=== PATIENT | male | born 1935 ===

== ENCOUNTER 2018-07-28 09:19 | Inpatient (IN) | payer MEDICARE, MEDICAID ==
[2018-07-28] MEDS ORDERED: Albuterol-Ipratrop 3 mg / 0.5 (3 ml) UD INH STA ×2 (09:53→13:07)
--- NOTE | 2018-07-28 10:03 | ED PDOC ---
HPI: General Adult Time Seen by Provider: 07/28/18 09:36 Chief Complaint (Nursing): Respiratory Distress Chief Complaint (Provider): Respiratory Distress History Per: Patient, Family History/Exam Limitations: no limitations Onset/Duration Of Symptoms: Days, Persistent Current Symptoms Are (Timing): Still Present Additional Complaint(s): 82 year old male with no past medical history who is presenting to the ED for evaluation of chronic dry cough for years that worsened over the last 2 weeks. Patient states that he was given antibiotics a month ago with no relief in symptoms. He denies any chest pain or fevers. Patient offers no other medical complaints at this time. Department Specialist: Dr. Chen Past Medical History Reviewed: Historical Data, Nursing Documentation, Vital Signs Vital Signs: Last Vital Signs Temp 98 F 07/28/18 09:36 Pulse 61 07/28/18 09:36 Resp 18 07/28/18 09:36 BP 154/72 H 07/28/18 09:36 Pulse Ox 98 07/28/18 09:36 - Medical History PMH: No Chronic Diseases - Surgical History Surgical History: No Surg Hx - Family History Family History: States: Unknown Family Hx - Social History Current smoker - smoking cessation education provided: No Alcohol: None Drugs: Denies - Home Medications Home Medications: Ambulatory Orders Medication Instructions Recorded Albuterol/Ipratropium [Duoneb 3 3 ml IH Q6 PRN 07/28/18 mg/0.5 mg (3 ml) UD] Brinzolamide/Brimonidine Tart 1 drop RIGHTEYE Q12 07/28/18 [Simbrinza 1%-0.2% Eye Drops] Carvedilol [Coreg] 12.5 mg PO Q12 07/28/18 Dorzolamide 2% [Trusopt] 1 drop RIGHTEYE Q12 07/28/18 Doxazosin [Cardura] 2 mg PO DAILY 07/28/18 Famotidine [Pepcid] 20 mg PO DAILY 07/28/18 Isosorbide Mononitrate [Imdur] 60 mg PO DAILY 07/28/18 Linaclotide [Linzess] 290 mcg PO DAILY 07/28/18 Meloxicam [Mobic] 15 mg PO DAILY 07/28/18 Montelukast [Singulair] 10 mg PO DAILY 01/23/19 Tamsulosin [Flomax] 0.4 mg PO DAILY 07/28/18 Timolol 0.5% Ophth [Timoptic 0.5% 1 drop RIGHTEYE Q12 07/28/18 Ophth Soln] Umeclidinium Brm/Vilanterol Tr 1 puff IH DAILY 07/28/18 [Anoro Ellipta 62.5-25 Mcg INH] - Allergies Allergies/Adverse Reactions: Allergies Allergy/AdvReac Type Severity Reaction Status Date / Time No Known Allergies Allergy Verified 07/28/18 09:55 Review of Systems ROS Statement: Except As Marked, All Systems Reviewed And Found Negative Constitutional: Negative for: Fever Cardiovascular: Negative for: Chest Pain Respiratory: Positive for: Cough Physical Exam - Reviewed Nursing Documentation Reviewed: Yes Vital Signs Reviewed: Yes - Physical Exam Appears: Positive for: Non-toxic, No Acute Distress Head Exam: Positive for: ATRAUMATIC, NORMAL INSPECTION, NORMOCEPHALIC Skin: Positive for: Normal Color, Warm, DRY Eye Exam: Positive for: EOMI, Normal appearance, PERRL ENT: Positive for: Normal ENT Inspection Neck: Positive for: Normal, Painless ROM Cardiovascular/Chest: Positive for: Regular Rate, Rhythm. Negative for: Murmur Respiratory: Positive for: Wheezing (bilateral ). Negative for: Respiratory Distress Gastrointestinal/Abdominal: Positive for: Normal Exam, Soft. Negative for: Tenderness Extremity: Positive for: Normal ROM. Negative for: Deformity, Swelling Neurologic/Psych: Positive for: Alert, Oriented. Negative for: Motor/Sensory Deficits - Laboratory Results Result Diagrams: 07/31/18 04:30 07/31/18 04:30 - ECG O2 Sat by Pulse Oximetry: 98 (RA) Pulse Ox Interpretation: Normal Medical Decision Making Medical Decision Making: Time: 9:53 Plan: --EKG --CMP --CBC --Coags --Chest X-Ray --Duoneb 3 ml INH --Solu-Medrol 125 mg IVP --Blood Culture --Peak Flow Pre/Post Tx --Influenza A B Accession No. 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 FINDINGS: LUNGS: No active pulmonary disease. PLEURA: No significant pleural effusion identified, no pneumothorax apparent. CARDIOVASCULAR: Aortic atherosclerotic calcifications. Cardiomediastinal silhouette enlarged. OSSEOUS STRUCTURES: Final degenerative changes. VISUALIZED UPPER ABDOMEN: Normal. OTHER FINDINGS: None. IMPRESSION: No active disease. Scribe Attestation: Documented by She Means, acting as a scribe for Olivia Gross MD. Provider Scribe Attestation: All medical record entries made by the Scribe were at my direction and personally dictated by me. I have reviewed the chart and agree that the record accurately reflects my personal performance of the history, physical exam, medical decision making, and the department course for this patient. I have also personally directed, reviewed, and agree with the discharge instructions and disposition. Disposition - Clinical Impression Clinical Impression: COPD exacerbation - Patient ED Disposition Is Patient to be Admitted: Yes - Disposition Disposition Time: 13:07 Condition: STABLE - Pt Status Changed To: Hospital Disposition Of: Inpatient - Admit Certification Admit to Inpatient:: After my assessment, the patient will require hospitalization for at least two midnights. This is because of the severity of symptoms shown, intensity of services needed, and/or the medical risk in this patient being treated as an outpatient. - POA Present On Arrival: None
[2018-07-28 10:12] LABS: BASO % 0.6 % (0.0-2.0); EOS # 1.4 K/uL (0.0-0.7); EOS % 16.6 % (0.0-4.0); HEMOGLOBIN 12.4 g/dL (12.0-18.0); LYMPH # 1.3 K/uL (1.0-4.3); LYMPH % 15.5 % (20.0-40.0); MEAN CORPUSCULAR HEMOGLOBIN 29.3 pg (27.0-31.0); MEAN CORPUSCULAR HGB CONC 32.6 g/dL (33.0-37.0); MEAN PLATELET VOLUME 10.3 fl (7.2-11.7); MONO % 12.2 % (0.0-10.0); NEUT # 4.5 K/uL (1.8-7.0); NEUT % 55.1 % (50.0-75.0); NRBC % 0.1 % (0.0-0.0); RBC 4.25 Mil/uL (4.40-5.90); RED CELL DISTRIBUTION WIDTH 14.3 % (11.5-14.5); WHITE BLOOD COUNT 8.2 K/uL (4.8-10.8)
[2018-07-28] MEDS ORDERED: Albuterol-Ipratrop 3 mg / 0.5 (3 ml) UD ONE ×2 (10:13→13:51)
[2018-07-28 10:25] LABS: ALBUMIN 3.9 g/dL (3.5-5.0); ALT/SGPT 21 U/L (21-72); AST/SGOT 23 U/L (17-59); BLOOD UREA NITROGEN 14 mg/dl (9-20); CALCIUM 9.2 mg/dL (8.4-10.2); GFR NON-AFRICAN AMERICAN > 60
[2018-07-28 10:31] LABS: INR 1.2; PROTHROMBIN TIME 13.1 Seconds (9.8-13.1)
--- NOTE | 2018-07-28 11:23 | RAD ---
Date of service: 07/28/2018 HISTORY: Cough COMPARISON: No prior. FINDINGS: LUNGS: No active pulmonary disease. PLEURA: No significant pleural effusion identified, no pneumothorax apparent. CARDIOVASCULAR: Aortic atherosclerotic calcifications. Cardiomediastinal silhouette enlarged. OSSEOUS STRUCTURES: Final degenerative changes. VISUALIZED UPPER ABDOMEN: Normal. OTHER FINDINGS: None. IMPRESSION: No active disease.
--- NOTE | 2018-07-28 12:09 | CARD ---
APPROVED REPORT Date of service: 07/28/2018 EKG Measurement Heart [id number] <Conclusion> Sinus rhythm with 1st degree AV block Nonspecific T wave abnormality Abnormal ECG
[2018-07-28] MEDS ORDERED: Azithromycin 500 MG in Sodium Chloride 0.9% 250 ML IV STA (13:06)
[2018-07-28] MEDS ORDERED: cefTRIAXone (Rocephin) 1 gm Inj ONE (13:50)
[2018-07-28] MEDS ORDERED: Azithromycin 500 MG IV IVPB ONE (15:52)
[2018-07-28 18:01] LABS: ABG ALLEN TEST YES; ARTERIAL BLOOD GAS HCO3 26.5 mmol/L (21-28); ARTERIAL BLOOD GAS HEMOGLOBIN 14.3 g/dL (11.7-17.4); ARTERIAL BLOOD GAS O2 CAPACITY 19.5 mL/dL (16-24); ARTERIAL BLOOD GAS O2 CONTENT 19.3 ML/dL (15-23); ARTERIAL BLOOD GAS O2 SAT 98.8 % (95-98); ARTERIAL BLOOD GAS PCO2 35 mm/Hg (35-45); ARTERIAL BLOOD GAS PH 7.47 (7.35-7.45); ARTERIAL BLOOD GAS PO2 84 mm/Hg (80-100); ARTERIAL BLOOD GAS TCO2 26.6 mmol/L (22-28)
[2018-07-28] MEDS: Albuterol-Ipratrop 3 mg / 0.5 (3 ml) UD INH SCH (19:25)
[2018-07-28] MEDS ORDERED: Influenza Vaccine 60 mcg/0.5 mL SYR (4YR UP) IM ONE (19:25)
[2018-07-28] MEDS: Dorzolamide 2% Ophth Soln OD SCH (21:30)
[2018-07-29] MEDS: Albuterol-Ipratrop 3 mg / 0.5 (3 ml) UD INH SCH ×4 (01:00→19:37)
[2018-07-29] MEDS: MethylPREDNISolone 40 mg Vial IVP SCH ×3 (02:25→17:44)
[2018-07-29 06:07] LABS: HEMOGLOBIN 13.4 g/dL (12.0-18.0); MEAN CELL VOLUME 88.1 fl (80.0-94.0); MEAN CORPUSCULAR HEMOGLOBIN 28.9 pg (27.0-31.0); MEAN CORPUSCULAR HGB CONC 32.8 g/dL (33.0-37.0); RBC 4.63 Mil/uL (4.40-5.90); RED CELL DISTRIBUTION WIDTH 14.4 % (11.5-14.5); WHITE BLOOD COUNT 13.2 K/uL (4.8-10.8)
[2018-07-29 06:24] LABS: BLOOD UREA NITROGEN 21 mg/dl (9-20); CALCIUM 9.3 mg/dL (8.4-10.2); GFR NON-AFRICAN AMERICAN > 60; HDL CHOLESTEROL 50 MG/DL (30-70)
[2018-07-29 06:28] LABS: LDL CHOLESTEROL 157 mg/dL (0-129)
[2018-07-29] MEDS ORDERED: Promethazine/Cod 6.25mg-10mg/5ml Syr UD PO PRN (06:51)
[2018-07-29] MEDS: Acetylcysteine 20% Inhal Soln (4ml) PO SCH (08:15)
[2018-07-29] MEDS: Naproxen 500 MG TAB PO SCH ×2 (09:20→17:43)
[2018-07-29] MEDS: Brimonidine 0.2% 50 DROP/5 ML BOTTLE OD SCH ×2 (09:27→20:58)
[2018-07-29] MEDS: Azithromycin 500 MG in Sodium Chloride 0.9% 250 ML IVPB SCH (09:29)
[2018-07-29] MEDS: Dorzolamide 2% Ophth Soln OD SCH ×2 (09:30→20:58)
--- NOTE | 2018-07-29 14:09 | CT ---
Date of service: 07/29/2018 PROCEDURE: CT Chest without contrast HISTORY: cough, sob, r/o pna COMPARISON: Frontal chest radiograph 07/28/2018. TECHNIQUE: Contiguous axial images were obtained through the chest without intravenous contrast enhancement. Sagittal and coronal reconstructions were performed. Radiation dose: Total exam DLP = 498.27 mGy-cm. This CT exam was performed using one or more of the following dose reduction techniques: Automated exposure control, adjustment of the mA and/or kV according to patient size, and/or use of iterative reconstruction technique. FINDINGS: LUNGS: There is very limited but diffuse increase in reticular markings in the periphery of the bilateral lungs with occasional associated emphysema in a pattern that is suspicious for interstitial pulmonary disease, likely primarily chronic and timeframe. Rare associated ground-glass opacity seen primarily the upper lobes bilaterally with interstitial changes could reflect an acute subacute component. While interstitial pneumonitis is certain possibility, this is not definite and clinical correlation is recommended. Central airways appear clear. No definitive neoplasm appreciable throughout. There are occasional noncalcified, subpleural nodules identified at the bilateral apices and mid lung zones which are nonspecific. MEDIASTINUM: The thoracic aorta is mildly dilated to 4.1 cm at the ascending arch resume a normal caliber of 3.1 cm at the proximal to mid arch. Borderline cardiomegaly. Multifocal coronary artery calcification identified. Main pulmonary artery unremarkable. No vascular congestion. No significant lymphadenopathy. Calcified lymph nodes or granulomata are seen at the left hilar region. There is a tiny hiatal hernia identified at the inferior mediastinum. Calcified atherosclerotic plaque seen related to the thoracic aorta in multiple segments. PLEURA: No pleural fluid. No pneumothorax. BONES: No fracture. No destructive lesion. UPPER ABDOMEN: Grossly unremarkable. OTHER FINDINGS: None. IMPRESSION: 1. Findings most compatible with a very mild but diffuse interstitial process predominately in the periphery of the lungs with occasional associated emphysema suggesting chronic time frame. Occasional tiny subpleural nodules or scarring are identified bilaterally at the upper lobes. Ground-glass opacities appreciated at the bilateral upper lobes occasion associated with peripheral interstitial pulmonary changes and could reflect an acute or subacute infectious or inflammatory process. No definite consolidation appreciated bilaterally. 2. No pleural or pericardial effusion or significant lymphadenopathy identified. 3. Dilated ascending thoracic aorta 4.1 cm with the thoracic aorta assuming normal caliber the proximal to mid arch level.
[2018-07-29] MEDS ORDERED: Acetylcysteine 10% 4 ML IH SCH (17:00)
[2018-07-29] MEDS: guaiFENesin-DM 600-30 mg ER Tab PO SCH (17:44)
[2018-07-29] MEDS: Promethazine/Cod 6.25mg-10mg/5ml Syr UD PO SCH ×2 (17:49→21:01)
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
[2018-07-30] MEDS: MethylPREDNISolone 40 mg Vial IVP SCH ×3 (00:12→16:40)
[2018-07-30] MEDS: Albuterol-Ipratrop 3 mg / 0.5 (3 ml) UD INH SCH ×4 (01:10→19:51)
[2018-07-30 05:38] LABS: BASO % 0.2 % (0.0-2.0); HEMOGLOBIN 13.3 g/dL (12.0-18.0); LYMPH # 1.4 K/uL (1.0-4.3); LYMPH % 7.6 % (20.0-40.0); MEAN CELL VOLUME 88.8 fl (80.0-94.0); MEAN CORPUSCULAR HEMOGLOBIN 28.6 pg (27.0-31.0); MEAN CORPUSCULAR HGB CONC 32.2 g/dL (33.0-37.0); MEAN PLATELET VOLUME 10.8 fl (7.2-11.7); MONO # 0.5 K/uL (0.0-0.8); MONO % 2.7 % (0.0-10.0); NEUT # 16.5 K/uL (1.8-7.0); NEUT % 89.5 % (50.0-75.0); PLATELET COUNT 182 K/uL (130-400); RBC 4.63 Mil/uL (4.40-5.90); RED CELL DISTRIBUTION WIDTH 14.7 % (11.5-14.5); WHITE BLOOD COUNT 18.5 K/uL (4.8-10.8)
[2018-07-30] MEDS: Promethazine/Cod 6.25mg-10mg/5ml Syr UD PO SCH ×4 (05:47→22:32)
[2018-07-30 06:22] LABS: ALBUMIN 4.1 g/dL (3.5-5.0); ALT/SGPT 19 U/L (21-72); AST/SGOT 27 U/L (17-59); BLOOD UREA NITROGEN 34 mg/dl (9-20); CALCIUM 9.5 mg/dL (8.4-10.2); GFR NON-AFRICAN AMERICAN 58
[2018-07-30] MEDS: guaiFENesin-DM 600-30 mg ER Tab PO SCH ×2 (08:18→16:40)
[2018-07-30] MEDS: Naproxen 500 MG TAB PO SCH ×2 (08:18→16:39)
[2018-07-30] MEDS: Dorzolamide 2% Ophth Soln OD SCH ×2 (08:20→22:32)
[2018-07-30] MEDS ORDERED: Sodium Chloride 3% for Inhalation 4 ML VIAL.NEB IH PRN (08:51)
[2018-07-30 08:52] LABS: LYMPHOCYTE 7 % (20-50); MONOCYTE 2 % (0-10); NEUTROPHIL 91 % (42-75); TOTAL CELLS COUNTED 100
[2018-07-30 08:53] LABS: ANISOCYTOSIS SLIGHT; HYPOCHROMIC SLIGHT; MICROCYTOSIS SLIGHT; OVALOCYTES SLIGHT; TEARDROP CELLS SLIGHT
[2018-07-30 08:54] LABS: LARGE PLATELETS PRESENT
[2018-07-30 08:56] LABS: PLATELET ESTIMATE NORMAL (NORMAL)
[2018-07-30] MEDS: Acetylcysteine 20% Inhal Soln (4ml) PO SCH ×3 (09:00→19:50)
[2018-07-30] MEDS: Azithromycin 500 MG in Sodium Chloride 0.9% 250 ML IVPB SCH (11:36)
[2018-07-30] MEDS: Brimonidine 0.2% 50 DROP/5 ML BOTTLE OD SCH ×2 (14:43→22:33)
--- NOTE | 2018-07-30 15:16 | CARD ---
APPROVED REPORT Date of service: 07/30/2018 EXAM: Two-dimensional and M-mode echocardiogram with Doppler and color Doppler. Other Information Quality : GoodRhythm : NSR INDICATION COPD 2D DIMENSIONS IVSd1.29 (0.7-1.1cm)LVDd5.41 (3.9-5.9cm) LVOT Diameter2.13 (1.8-2.4cm)PWd1.30 (0.7-1.1cm) IVSs1.71 (0.8-1.2cm)LVDs3.54 (2.5-4.0cm) FS (%) 34.5 %PWs1.52 (0.8-1.2cm) M-Mode DIMENSIONS Left Atrium (MM)5.10 (2.5-4.0cm)IVSd1.65 (0.7-1.1cm) Aortic Root3.64 (2.2-3.7cm)LVDd4.27 (4.0-5.6cm) Aortic Cusp Exc.0.69 (1.5-2.0cm)PWd1.32 (0.7-1.1cm) IVSs2.08 cmFS (%) 49 % LVDs2.18 (2.0-3.8cm)PWs1.62 cm Aortic Valve AoV Peak Gjuzdoof061.1cm/sAoV VTI62.4cmAO Peak GR.29mmHg LVOT Peak Cekfedfh44.7cm/sLVOT VTI16.32cmAO Mean GR.19mmHg ABRAM (VMAX)0.75ap1BWO (VTI)0.51cm2 Mitral Valve MV E Sfkiijvt39.4cm/sMV DECEL YTHX646tuGF A Awvtbmqk54.5cm/s MV VPM34doM/A ratio1.1MVA (PHT)3.36cm2 TDI Lateral E' Peak V7.17cm/sMedial E' Peak V5.54cm/sE/Lateral E'13.6 E/Medial E'17.6 LEFT VENTRICLE The left ventricle is normal size. There is mild concentric left ventricular hypertrophy. The left ventricular systolic function is normal. The estimated ejection fraction is 55-60% No regional wall motion abnormalities noted.. Transmitral Doppler flow pattern is Grade II-pseudonormal filling dynamics. No left ventricle thrombus noted on this study. There is no ventricular septal defect visualized. There is no left ventricular aneurysm. There is no mass noted in the left ventricle. RIGHT VENTRICLE The right ventricle is normal size. There is normal right ventricular wall thickness. The right ventricular systolic function is normal. ATRIA The left atrium is mildly dilated. The right atrium size is normal. The interatrial septum is intact with no evidence for an atrial septal defect. AORTIC VALVE The aortic valve is normal in structure. Mildly calcified leaflets. No aortic regurgitation is present. There is moderate to severe aortic valvular stenosis. Peak aortic velocity is - 3 m/sec and calculated AV area is < 1 cm2. Correlate clinically. There is no aortic valvular vegetation. MITRAL VALVE The mitral valve is normal in structure. There is no evidence of mitral valve prolapse. There is no mitral valve stenosis. There is mild mitral valve regurgitation noted. TRICUSPID VALVE The tricuspid valve is normal in structure. There is trace tricuspid valve regurgitation noted. There is no tricuspid valve prolapse or vegetation. There is no tricuspid valve stenosis. PULMONIC VALVE The pulmonary valve is normal in structure. There is no pulmonic valvular regurgitation. There is no pulmonic valvular stenosis. GREAT VESSELS The aortic root is normal in size. The ascending aorta is normal in size. The pulmonary artery is normal. The IVC is normal in size and collapses >50% with inspiration. PERICARDIAL EFFUSION There is no pericardial effusion. There is no pleural effusion. <Conclusion> The estimated ejection fraction is 55-60% Transmitral Doppler flow pattern is Grade II-pseudonormal filling dynamics. The left atrium is mildly dilated. There is moderate to severe aortic valvular stenosis. Peak aortic velocity is - 3 m/sec and calculated AV area is < 1 cm2. Correlate clinically. There is mild mitral valve regurgitation noted. There is trace tricuspid valve regurgitation noted.
--- NOTE | 2018-07-30 17:02 | CP.PCM.PN ---
Subjective - Date & Time of Evaluation Date of Evaluation: 07/30/18 Time of Evaluation: 12:50 - Subjective Subjective: F/U COPD Exacerbation. Dry cough improved, less chest congestion. Objective - Vital Signs/Intake and Output Vital Signs (last 24 hours): Temp Pulse Resp BP Pulse Ox 97.5 F L 64 20 120/52 L 95 07/30/18 16:17 07/30/18 16:17 07/30/18 16:17 07/30/18 16:17 07/30/18 16:17 - Medications Medications: Current Medications Albuterol/Ipratropium (Duoneb 3 Mg/0.5 Mg (3 Ml) Ud) 3 ml INH RQ6 [facility] Last Admin: 07/30/18 13:21 Dose: 3 ml Atorvastatin Calcium (Lipitor) 10 mg PO DAILY [facility] Last Admin: 07/30/18 08:19 Dose: 10 mg Brimonidine Tartrate (Alphagan 0.2% Opht) 1 drop OD Q12 [facility] Last Admin: 07/30/18 14:43 Dose: 1 drop Carvedilol (Coreg) 12.5 mg PO Q12 [facility] Last Admin: 07/30/18 08:18 Dose: 12.5 mg Docusate Sodium (Colace) 100 mg PO BID [facility] Last Admin: 07/30/18 16:52 Dose: 100 mg Dorzolamide HCl (Trusopt) 1 drop OD Q12 [facility] Last Admin: 07/30/18 08:20 Dose: 1 drop Doxazosin Mesylate (Cardura) 2 mg PO DAILY [facility] Last Admin: 07/30/18 08:19 Dose: 2 mg Famotidine (Pepcid) 20 mg PO DAILY [facility] Last Admin: 07/30/18 08:19 Dose: 20 mg Guaifenesin/Dextromethorphan (Mucinex-Dm 600-30 Mg) 1 tab PO BID [facility] Last Admin: 07/30/18 16:40 Dose: 1 tab Home Med (Linaclotide [Linzess]) 290 mcg PO DAILY [facility] Ceftriaxone Sodium 1 gm/ (Sodium Chloride) 100 mls @ 100 mls/hr IVPB DAILY [facility]; Protocol Last Admin: 07/30/18 11:35 Dose: 100 mls/hr Azithromycin 500 mg/ Sodium (Chloride) 250 mls @ 250 mls/hr IVPB DAILY [facility]; Protocol Last Admin: 07/30/18 11:36 Dose: 250 mls/hr Isosorbide Mononitrate (Imdur) 60 mg PO DAILY [facility] Last Admin: 07/30/18 08:19 Dose: 60 mg Lactulose (Enulose) 20 gm PO DAILY PRN PRN Reason: Constipation Methylprednisolone (Solu-Medrol) 40 mg IVP Q8 [facility] Last Admin: 07/30/18 16:40 Dose: 40 mg Montelukast Sodium (Singulair) 10 mg PO DAILY [facility] Last Admin: 07/30/18 08:19 Dose: 10 mg Naproxen (Naproxen) 500 mg PO BID [facility] Last Admin: 07/30/18 16:39 Dose: 500 mg Promethazine HCl/Codeine (Phenergan/Codeine Oral Syrup) 5 ml PO Q6 [facility] Last Admin: 07/30/18 16:42 Dose: 5 ml Tamsulosin HCl (Flomax) 0.4 mg PO DAILY [facility] Last Admin: 07/30/18 08:18 Dose: 0.4 mg Timolol Maleate (Timoptic 0.5% [facility]) 1 drop OD Q12 [facility] Last Admin: 07/30/18 08:20 Dose: 1 drop - Labs Labs: 07/30/18 04:30 07/30/18 04:30 PT 13.1 Seconds (9.8-13.1) 07/28/18 10:04 INR 1.2 07/28/18 10:04 APTT 31.0 Seconds (25.6-37.1) 07/28/18 10:04 - Constitutional Appears: No Acute Distress, Chronically Ill - Head Exam Head Exam: NORMAL INSPECTION - Eye Exam Eye Exam: PERRL (R eye, blind on left.) - ENT Exam ENT Exam: Normal Exam - Neck Exam Neck Exam: Normal Inspection - Respiratory Exam Respiratory Exam: Decreased Breath Sounds (at bases), Rhonchi (scattered ), Wheezes (few scattered) - Cardiovascular Exam Cardiovascular Exam: REGULAR RHYTHM - GI/Abdominal Exam GI & Abdominal Exam: Soft, Normal Bowel Sounds - Extremities Exam Additional comments: B/L TMA - Back Exam Back Exam: NORMAL INSPECTION - Neurological Exam Neurological Exam: Alert, Awake, Oriented x3 Additional comments: No focal motor/sensory deficit - Psychiatric Exam Psychiatric exam: Normal Affect, Normal Mood - Skin Skin Exam: Warm Assessment and Plan (1) PNA (pneumonia) Status: Acute (2) Chronic cough Status: Acute (3) COPD exacerbation Status: Acute (4) Hypercholesterolemia Status: Chronic (5) HTN (hypertension) Status: Chronic (6) History of transmetatarsal amputation of foot Status: Chronic (7) CAD (coronary artery disease) Status: Chronic (8) BPH (benign prostatic hyperplasia) Status: Chronic (9) Generalized pain Status: Chronic - Assessment and Plan (Free Text) Plan: CT Chest: COPD, PNA. Continue Zithromax, Ceftriaxone, Duoneb, Solumedrol and rest of Tx., abnormal EKG, f/u ECHO, Cardiac consult
--- NOTE | 2018-07-30 20:33 | CP.PCM.CON ---
<Larry Frias - Last Filed: 07/30/18 20:04> History of Present Illness - History of Present Illness History of Present Illness: Larry Frias DO PGY1 - Internal Medicine Acls Specialist - Cardiology Consult Note for Dr. Myles 82M w/ a PMH of COPD, CAD, HTN, OA, BL TMA presented to [facility] on 07/28 for persistent cough and SOB over many months worsening 2 weeks [employer]. No relief w/ home duoneb + anti tussive. Upon evaluation patient continues to complain of SOB w/ Cough; denies any chest pain, palpitation, orthopnea, LE edema. No further complaints voiced on 12 system ROS. PMH as above PSH: L eye surgery as a child,BL TMA Home Rx: Anoro-Ellipta 1puff QD, Mobic 15 Daily, Linzess 290mcg Daily, Cardura 2mg QD, Duoneb Q6H pRN, Montelukast 10 QD, IMDUR 60 Daily, Coreg 12.5 Q12, Social: Former heavy smoker Quit 12 years ago, Denies EtOH, Denies Illicit drug use FamHx: Denies Review of Systems - Review of Systems All systems: reviewed and no additional remarkable complaints except Review of Systems: as per HPI Past Patient History - Past Medical History & Family History Past Medical History?: Yes - Past Social History Smoking Status: Former Smoker Alcohol: None Drugs: Denies Home Situation {Lives}: Alone - CARDIAC Hx Cardiac Disorders: Yes Hx Hypercholesterolemia: Yes Hx Hypertension: Yes - PULMONARY Hx Respiratory Disorders: Yes Hx Chronic Obstructive Pulmonary Disease (COPD): Yes - NEUROLOGICAL Hx Neurological Disorder: No - HEENT Hx HEENT Problems: Yes Hx Blind: Yes (L eye) - RENAL Hx Chronic Kidney Disease: No - ENDOCRINE/METABOLIC Hx Endocrine Disorders: No - HEMATOLOGICAL/ONCOLOGICAL Hx Blood Disorders: No - INTEGUMENTARY Hx Dermatological Problems: No - MUSCULOSKELETAL/RHEUMATOLOGICAL Hx Musculoskeletal Disorders: Yes Hx Arthritis: Yes Hx Falls: No Hx Unsteady Gait: Yes - GASTROINTESTINAL Hx Gastrointestinal Disorders: Yes - GENITOURINARY/GYNECOLOGICAL Hx Genitourinary Disorders: Yes Hx Prostate Problems: Yes - PSYCHIATRIC Hx Psychophysiologic Disorder: No Hx Substance Use: No - SURGICAL HISTORY Hx Surgeries: Yes Other/Comment: b/l toes amputation - ANESTHESIA Hx Anesthesia: Yes Meds Allergies/Adverse Reactions: Allergies Allergy/AdvReac Type Severity Reaction Status Date / Time No Known Allergies Allergy Verified 07/28/18 09:55 - Medications Medications: Current Medications Albuterol/Ipratropium (Duoneb 3 Mg/0.5 Mg (3 Ml) Ud) 3 ml INH RQ6 [facility] Last Admin: 07/30/18 19:51 Dose: 3 ml Atorvastatin Calcium (Lipitor) 10 mg PO DAILY [facility] Last Admin: 07/30/18 08:19 Dose: 10 mg Brimonidine Tartrate (Alphagan 0.2% Opht) 1 drop OD Q12 [facility] Last Admin: 07/30/18 14:43 Dose: 1 drop Carvedilol (Coreg) 12.5 mg PO Q12 [facility] Last Admin: 07/30/18 08:18 Dose: 12.5 mg Docusate Sodium (Colace) 100 mg PO BID [facility] Last Admin: 07/30/18 16:52 Dose: 100 mg Dorzolamide HCl (Trusopt) 1 drop OD Q12 [facility] Last Admin: 07/30/18 08:20 Dose: 1 drop Doxazosin Mesylate (Cardura) 2 mg PO DAILY [facility] Last Admin: 07/30/18 08:19 Dose: 2 mg Famotidine (Pepcid) 20 mg PO DAILY [facility] Last Admin: 07/30/18 08:19 Dose: 20 mg Guaifenesin/Dextromethorphan (Mucinex-Dm 600-30 Mg) 1 tab PO BID [facility] Last Admin: 07/30/18 16:40 Dose: 1 tab Home Med (Linaclotide [Linzess]) 290 mcg PO DAILY [facility] Ceftriaxone Sodium 1 gm/ (Sodium Chloride) 100 mls @ 100 mls/hr IVPB DAILY [facility]; Protocol Last Admin: 07/30/18 11:35 Dose: 100 mls/hr Azithromycin 500 mg/ Sodium (Chloride) 250 mls @ 250 mls/hr IVPB DAILY [facility]; Protocol Last Admin: 07/30/18 11:36 Dose: 250 mls/hr Isosorbide Mononitrate (Imdur) 60 mg PO DAILY [facility] Last Admin: 07/30/18 08:19 Dose: 60 mg Lactulose (Enulose) 20 gm PO DAILY PRN PRN Reason: Constipation Methylprednisolone (Solu-Medrol) 40 mg IVP Q8 [facility] Last Admin: 07/30/18 16:40 Dose: 40 mg Montelukast Sodium (Singulair) 10 mg PO DAILY [facility] Last Admin: 07/30/18 08:19 Dose: 10 mg Naproxen (Naproxen) 500 mg PO BID [facility] Last Admin: 07/30/18 16:39 Dose: 500 mg Promethazine HCl/Codeine (Phenergan/Codeine Oral Syrup) 5 ml PO Q6 [facility] Last Admin: 07/30/18 16:42 Dose: 5 ml Tamsulosin HCl (Flomax) 0.4 mg PO DAILY [facility] Last Admin: 07/30/18 08:18 Dose: 0.4 mg Timolol Maleate (Timoptic 0.5% Ophth Soln) 1 drop OD Q12 [facility] Last Admin: 07/30/18 08:20 Dose: 1 drop Physical Exam - Constitutional Appears: Well, Non-toxic, No Acute Distress - Head Exam Head Exam: ATRAUMATIC, NORMOCEPHALIC - Eye Exam Eye Exam: EOMI, Normal appearance, PERRL. absent: Scleral icterus - ENT Exam ENT Exam: Mucous Membranes Moist - Respiratory Exam Respiratory Exam: Prolonged Expiratory Phase, Rhonchi, Wheezes - Cardiovascular Exam Cardiovascular Exam: RRR, +S1, +S2 - GI/Abdominal Exam GI & Abdominal Exam: Normal Bowel Sounds, Soft. absent: Tenderness - Extremities Exam Additional comments: Good tibial pulses; BL TMA - Neurological Exam Neurological exam: Alert - Psychiatric Exam Psychiatric exam: Normal Affect, Normal Mood - Skin Skin Exam: Dry, Intact, Normal Color, Warm Results - Vital Signs Recent Vital Signs: Last Vital Signs Temp 98 F 07/30/18 19:48 Pulse 68 07/30/18 19:48 Resp 20 07/30/18 19:48 BP 144/66 07/30/18 19:48 Pulse Ox 94 L 07/30/18 19:48 - Labs Result Diagrams: 07/30/18 04:30 07/30/18 04:30 Labs: Laboratory Results - last 24 hr 07/30/18 07/30/18 07/30/18 04:30 04:30 04:30 WBC 18.5 H RBC 4.63 Hgb 13.3 Hct 41.1 MCV 88.8 MCH 28.6 MCHC 32.2 L RDW 14.7 H Plt Count 182 MPV 10.8 Neut % (Auto) 89.5 H Lymph % (Auto) 7.6 L Wilcox % (Auto) 2.7 Eos % (Auto) 0.0 Baso % (Auto) 0.2 Neut # (Auto) 16.5 H Lymph # (Auto) 1.4 Wilcox # (Auto) 0.5 Eos # (Auto) 0.0 Baso # (Auto) 0.0 Neutrophils % (Manual) 91 H Lymphocytes % (Manual) 7 L Monocytes % (Manual) 2 Platelet Estimate Normal Large Platelets Present Hypochromasia (manual) Slight Anisocytosis (manual) Slight Microcytosis (manual) Slight Tear Drop Cells Slight Ovalocytes Slight Sodium 138 Potassium 4.5 Chloride 104 Carbon Dioxide 23 Anion Gap 16 BUN 34 H Creatinine 1.2 Est GFR ( Amer) > 60 Est GFR (Non-Af Amer) 58 Random Glucose 144 H Hemoglobin A1c 6.2 Calcium 9.5 Phosphorus 4.6 H Magnesium 2.2 Total Bilirubin 0.4 AST 27 ALT 19 L Alkaline Phosphatase 92 Total Protein 8.3 H Albumin 4.1 Globulin 4.3 H Albumin/Globulin Ratio 1.0 Mycoplasma pneumon IgM 07/30/18 09:29 WBC RBC Hgb Hct MCV MCH MCHC RDW Plt Count MPV Neut % (Auto) Lymph % (Auto) Wilcox % (Auto) Eos % (Auto) Baso % (Auto) Neut # (Auto) Lymph # (Auto) Wilcox # (Auto) Eos # (Auto) Baso # (Auto) Neutrophils % (Manual) Lymphocytes % (Manual) Monocytes % (Manual) Platelet Estimate Large Platelets Hypochromasia (manual) Anisocytosis (manual) Microcytosis (manual) Tear Drop Cells Ovalocytes Sodium Potassium Chloride Carbon Dioxide Anion Gap BUN Creatinine Est GFR ( Amer) Est GFR (Non-Af Amer) Random Glucose Hemoglobin A1c Calcium Phosphorus Magnesium Total Bilirubin AST ALT Alkaline Phosphatase Total Protein Albumin Globulin Albumin/Globulin Ratio Mycoplasma pneumon IgM Negative Assessment & Plan (1) COPD (chronic obstructive pulmonary disease) Status: Acute (2) COPD exacerbation Status: Acute Priority: High (3) Chronic cough Status: Acute Priority: High (4) CAD (coronary artery disease) Status: Chronic Priority: Medium (5) HTN (hypertension) Status: Chronic Priority: Medium - Assessment and Plan (Free Text) Plan: Will make patient NPO on thursday for NST Stress test Continue Medical Management with: Lipitor 10 QD Imdur 60 QD Coreg 12.5 Q12 <Matheus Myles - Last Filed: 08/03/18 17:31> Meds - Medications Medications: Current Medications Atorvastatin Calcium (Lipitor) 10 mg PO DAILY [facility] Last Admin: 08/03/18 09:44 Dose: 10 mg Brimonidine Tartrate (Alphagan 0.2% Opht) 1 drop OD Q12 [facility] Last Admin: 08/03/18 09:43 Dose: 1 drop Carvedilol (Coreg) 12.5 mg PO Q12 [facility] Last Admin: 08/03/18 09:44 Dose: 12.5 mg Docusate Sodium (Colace) 100 mg PO BID [facility] Last Admin: 08/03/18 09:45 Dose: 100 mg Dorzolamide HCl (Trusopt) 1 drop OD Q12 [facility] Last Admin: 08/03/18 09:43 Dose: 1 drop Doxazosin Mesylate (Cardura) 2 mg PO DAILY [facility] Last Admin: 08/03/18 09:45 Dose: 2 mg Enalapril Maleate (Vasotec) 10 mg PO BID [facility] Last Admin: 08/03/18 09:44 Dose: 10 mg Famotidine (Pepcid) 20 mg PO DAILY [facility] Last Admin: 08/03/18 09:44 Dose: 20 mg Guaifenesin/Dextromethorphan (Mucinex-Dm 600-30 Mg) 1 tab PO BID [facility] Last Admin: 08/03/18 09:45 Dose: 1 tab Ceftriaxone Sodium 1 gm/ (Sodium Chloride) 100 mls @ 100 mls/hr IVPB DAILY [facility]; Protocol Last Admin: 08/03/18 09:37 Dose: 100 mls/hr Azithromycin 500 mg/ Sodium (Chloride) 250 mls @ 250 mls/hr IVPB DAILY [facility]; Protocol Last Admin: 08/03/18 09:38 Dose: 250 mls/hr Isosorbide Mononitrate (Imdur) 60 mg PO DAILY [facility] Last Admin: 08/03/18 09:44 Dose: 60 mg Lactulose (Enulose) 20 gm PO DAILY PRN PRN Reason: Constipation Last Admin: 07/31/18 14:37 Dose: 20 gm Methylprednisolone (Solu-Medrol) 30 mg IVP Q8 [facility] Last Admin: 08/03/18 09:42 Dose: 30 mg Montelukast Sodium (Singulair) 10 mg PO DAILY [facility] Last Admin: 08/03/18 09:45 Dose: 10 mg Naproxen (Naproxen) 500 mg PO BID [facility] Last Admin: 08/03/18 09:45 Dose: 500 mg Promethazine HCl (Phenergan Syrup) 6.25 mg PO Q6 PRN PRN Reason: Cough Last Admin: 08/03/18 13:49 Dose: 6.25 mg Tamsulosin HCl (Flomax) 0.4 mg PO DAILY [facility] Last Admin: 08/03/18 09:45 Dose: 0.4 mg Timolol Maleate (Timoptic 0.5% [facility]) 1 drop OD Q12 [facility] Last Admin: 08/03/18 09:43 Dose: 1 drop Results - Vital Signs Recent Vital Signs: Last Vital Signs Temp 97.2 F L 08/03/18 16:28 Pulse 60 08/03/18 16:28 Resp 16 08/03/18 16:28 BP 132/63 08/03/18 16:28 Pulse Ox 95 08/03/18 16:28 - Labs Result Diagrams: 07/31/18 04:30 07/31/18 04:30 Assessment & Plan (1) Aortic stenosis Status: Acute (2) COPD (chronic obstructive pulmonary disease) Status: Acute (3) PNA (pneumonia) Status: Acute (4) CAD (coronary artery disease) Status: Chronic Priority: Medium Attending/Attestation - Attestation I have personally seen and examined this patient.: Yes I have fully participated in the care of the patient.: Yes I have reviewed all pertinent clinical information: Yes
[2018-07-31] MEDS: MethylPREDNISolone 40 mg Vial IVP SCH ×3 (00:12→16:29)
[2018-07-31] MEDS: Albuterol-Ipratrop 3 mg / 0.5 (3 ml) UD INH SCH ×4 (01:11→19:00)
[2018-07-31] MEDS: Promethazine/Cod 6.25mg-10mg/5ml Syr UD PO SCH ×4 (03:10→21:27)
[2018-07-31 06:12] LABS: HEMOGLOBIN 12.4 g/dL (12.0-18.0); MEAN CELL VOLUME 89.3 fl (80.0-94.0); MEAN CORPUSCULAR HEMOGLOBIN 29.3 pg (27.0-31.0); MEAN CORPUSCULAR HGB CONC 32.8 g/dL (33.0-37.0); RBC 4.22 Mil/uL (4.40-5.90); RED CELL DISTRIBUTION WIDTH 14.8 % (11.5-14.5); WHITE BLOOD COUNT 14.4 K/uL (4.8-10.8)
[2018-07-31 06:29] LABS: BLOOD UREA NITROGEN 33 mg/dl (9-20); CALCIUM 8.8 mg/dL (8.4-10.2); GFR NON-AFRICAN AMERICAN > 60
[2018-07-31] MEDS: guaiFENesin-DM 600-30 mg ER Tab PO SCH ×2 (08:36→16:29)
[2018-07-31] MEDS: Naproxen 500 MG TAB PO SCH ×2 (08:36→16:30)
[2018-07-31] MEDS: Dorzolamide 2% Ophth Soln OD SCH ×2 (08:38→21:21)
[2018-07-31] MEDS: Brimonidine 0.2% 50 DROP/5 ML BOTTLE OD SCH ×2 (08:38→21:29)
[2018-07-31] MEDS: Azithromycin 500 MG in Sodium Chloride 0.9% 250 ML IVPB SCH (08:40)
--- NOTE | 2018-07-31 13:47 | CP.PCM.PN ---
Subjective - Date & Time of Evaluation Date of Evaluation: 07/31/18 Time of Evaluation: 13:30 - Subjective Subjective: cough improved, still difficulty to bring up flegm Objective - Vital Signs/Intake and Output Vital Signs (last 24 hours): Temp Pulse Resp BP Pulse Ox 97.3 F L 56 L 18 155/71 H 95 07/31/18 12:54 07/31/18 12:54 07/31/18 12:54 07/31/18 12:54 07/31/18 12:54 - Medications Medications: Current Medications Albuterol/Ipratropium (Duoneb 3 Mg/0.5 Mg (3 Ml) Ud) 3 ml INH RQ6 [facility] Last Admin: 07/31/18 13:08 Dose: 3 ml Atorvastatin Calcium (Lipitor) 10 mg PO DAILY [facility] Last Admin: 07/31/18 08:36 Dose: 10 mg Brimonidine Tartrate (Alphagan 0.2% Opht) 1 drop OD Q12 [facility] Last Admin: 07/31/18 08:38 Dose: 1 drop Carvedilol (Coreg) 12.5 mg PO Q12 [facility] Last Admin: 07/31/18 08:36 Dose: 12.5 mg Docusate Sodium (Colace) 100 mg PO BID [facility] Last Admin: 07/31/18 08:37 Dose: 100 mg Dorzolamide HCl (Trusopt) 1 drop OD Q12 [facility] Last Admin: 07/31/18 08:38 Dose: 1 drop Doxazosin Mesylate (Cardura) 2 mg PO DAILY [facility] Last Admin: 07/31/18 08:39 Dose: 2 mg Famotidine (Pepcid) 20 mg PO DAILY [facility] Last Admin: 07/31/18 08:37 Dose: 20 mg Guaifenesin/Dextromethorphan (Mucinex-Dm 600-30 Mg) 1 tab PO BID [facility] Last Admin: 07/31/18 08:36 Dose: 1 tab Home Med (Linaclotide [Linzess]) 290 mcg PO DAILY [facility] Ceftriaxone Sodium 1 gm/ (Sodium Chloride) 100 mls @ 100 mls/hr IVPB DAILY [facility]; Protocol Last Admin: 07/31/18 08:38 Dose: 100 mls/hr Azithromycin 500 mg/ Sodium (Chloride) 250 mls @ 250 mls/hr IVPB DAILY [facility]; Protocol Last Admin: 07/31/18 08:40 Dose: 250 mls/hr Isosorbide Mononitrate (Imdur) 60 mg PO DAILY [facility] Last Admin: 07/31/18 08:36 Dose: 60 mg Lactulose (Enulose) 20 gm PO DAILY PRN PRN Reason: Constipation Methylprednisolone (Solu-Medrol) 40 mg IVP Q8 [facility] Last Admin: 07/31/18 08:36 Dose: 40 mg Montelukast Sodium (Singulair) 10 mg PO DAILY [facility] Last Admin: 07/31/18 08:36 Dose: 10 mg Naproxen (Naproxen) 500 mg PO BID [facility] Last Admin: 07/31/18 08:36 Dose: 500 mg Promethazine HCl/Codeine (Phenergan/Codeine Oral Syrup) 5 ml PO Q6 [facility] Last Admin: 07/31/18 09:02 Dose: 5 ml Tamsulosin HCl (Flomax) 0.4 mg PO DAILY [facility] Last Admin: 07/31/18 08:37 Dose: 0.4 mg Timolol Maleate (Timoptic 0.5% [facility]) 1 drop OD Q12 [facility] Last Admin: 07/31/18 08:38 Dose: 1 drop - Labs Labs: 07/31/18 04:30 07/31/18 04:30 PT 13.1 Seconds (9.8-13.1) 07/28/18 10:04 INR 1.2 07/28/18 10:04 APTT 31.0 Seconds (25.6-37.1) 07/28/18 10:04 - Constitutional Appears: No Acute Distress - Eye Exam Eye Exam: PERRL Additional comments: no vision R Eye - ENT Exam ENT Exam: Normal Exam - Neck Exam Neck Exam: Normal Inspection - Respiratory Exam Respiratory Exam: Decreased Breath Sounds (at bases), Rhonchi (scattered), Wheezes (scattered) - Cardiovascular Exam Cardiovascular Exam: REGULAR RHYTHM - GI/Abdominal Exam GI & Abdominal Exam: Soft, Normal Bowel Sounds - Extremities Exam Additional comments: B/L TMA - Neurological Exam Neurological Exam: Alert, Oriented x3 Additional comments: weakness L/E - Skin Skin Exam: Warm Assessment and Plan (1) PNA (pneumonia) Status: Acute (2) Chronic cough Status: Acute (3) COPD exacerbation Status: Acute (4) Hypercholesterolemia Status: Chronic (5) HTN (hypertension) Status: Chronic (6) History of transmetatarsal amputation of foot Status: Chronic (7) CAD (coronary artery disease) Status: Chronic (8) Aortic stenosis Assessment & Plan: moderate to severe Status: Acute (9) BPH (benign prostatic hyperplasia) Status: Chronic (10) Generalized pain Status: Chronic - Assessment and Plan (Free Text) Plan: continue Zithromax, Rocephin, DuoNeb and rest of Tx, ECHO LVEF 55-60%, moderate to severe , STT Thursday
[2018-08-01] MEDS: Albuterol-Ipratrop 3 mg / 0.5 (3 ml) UD INH SCH ×4 (01:04→19:09)
[2018-08-01] MEDS: MethylPREDNISolone 40 mg Vial IVP SCH ×3 (01:24→16:01)
[2018-08-01] MEDS: Promethazine/Cod 6.25mg-10mg/5ml Syr UD PO SCH ×3 (04:59→15:40)
[2018-08-01] MEDS: guaiFENesin-DM 600-30 mg ER Tab PO SCH ×2 (08:23→16:04)
[2018-08-01] MEDS: Brimonidine 0.2% 50 DROP/5 ML BOTTLE OD SCH ×2 (08:23→21:28)
[2018-08-01] MEDS: Naproxen 500 MG TAB PO SCH ×2 (08:23→16:04)
[2018-08-01] MEDS: Dorzolamide 2% Ophth Soln OD SCH ×2 (08:23→21:30)
[2018-08-01] MEDS: Azithromycin 500 MG in Sodium Chloride 0.9% 250 ML IVPB SCH (08:27)
--- NOTE | 2018-08-01 15:29 | CP.PCM.PN ---
Subjective - Date & Time of Evaluation Date of Evaluation: 08/01/18 Time of Evaluation: 12:30 - Subjective Subjective: cough improved, no Chest congestion, no C/P Objective - Vital Signs/Intake and Output Vital Signs (last 24 hours): Temp Pulse Resp BP Pulse Ox 97.4 F L 57 L 18 181/75 H 96 08/01/18 12:28 08/01/18 12:28 08/01/18 12:28 08/01/18 12:28 08/01/18 12:28 - Medications Medications: Current Medications Albuterol/Ipratropium (Duoneb 3 Mg/0.5 Mg (3 Ml) Ud) 3 ml INH RQ6 [facility] Last Admin: 08/01/18 14:22 Dose: 3 ml Atorvastatin Calcium (Lipitor) 10 mg PO DAILY [facility] Last Admin: 08/01/18 08:23 Dose: 10 mg Brimonidine Tartrate (Alphagan 0.2% Opht) 1 drop OD Q12 [facility] Last Admin: 08/01/18 08:23 Dose: 1 drop Carvedilol (Coreg) 12.5 mg PO Q12 [facility] Last Admin: 08/01/18 08:25 Dose: 12.5 mg Docusate Sodium (Colace) 100 mg PO BID [facility] Last Admin: 08/01/18 08:25 Dose: 100 mg Dorzolamide HCl (Trusopt) 1 drop OD Q12 [facility] Last Admin: 08/01/18 08:23 Dose: 1 drop Doxazosin Mesylate (Cardura) 2 mg PO DAILY [facility] Last Admin: 08/01/18 08:25 Dose: 2 mg Enalapril Maleate (Vasotec) 10 mg PO BID [facility] Famotidine (Pepcid) 20 mg PO DAILY [facility] Last Admin: 08/01/18 08:23 Dose: 20 mg Guaifenesin/Dextromethorphan (Mucinex-Dm 600-30 Mg) 1 tab PO BID [facility] Last Admin: 08/01/18 08:23 Dose: 1 tab Home Med (Linaclotide [Linzess]) 290 mcg PO DAILY [facility] Isosorbide Mononitrate (Imdur) 60 mg PO DAILY [facility] Last Admin: 08/01/18 08:26 Dose: 60 mg Lactulose (Enulose) 20 gm PO DAILY PRN PRN Reason: Constipation Last Admin: 07/31/18 14:37 Dose: 20 gm Methylprednisolone (Solu-Medrol) 40 mg IVP Q8 [facility] Last Admin: 08/01/18 08:29 Dose: 40 mg Montelukast Sodium (Singulair) 10 mg PO DAILY [facility] Last Admin: 08/01/18 08:24 Dose: 10 mg Naproxen (Naproxen) 500 mg PO BID [facility] Last Admin: 08/01/18 08:23 Dose: 500 mg Promethazine HCl/Codeine (Phenergan/Codeine Oral Syrup) 5 ml PO Q6 [facility] Last Admin: 08/01/18 10:33 Dose: 5 ml Tamsulosin HCl (Flomax) 0.4 mg PO DAILY [facility] Last Admin: 08/01/18 08:23 Dose: 0.4 mg Timolol Maleate (Timoptic 0.[facility]% [facility]) 1 drop OD Q12 [facility] Last Admin: 08/01/18 08:23 Dose: 1 drop - Labs Labs: 07/31/18 04:30 07/31/18 04:30 PT 13.1 Seconds (9.8-13.1) 07/28/18 10:04 INR 1.2 07/28/18 10:04 APTT 31.0 Seconds (25.6-37.1) 07/28/18 10:04 - Constitutional Appears: No Acute Distress - Head Exam Head Exam: NORMAL INSPECTION - Eye Exam Eye Exam: PERRL (R, no vision L Eye) - ENT Exam ENT Exam: Normal Exam - Neck Exam Neck Exam: Normal Inspection - Respiratory Exam Respiratory Exam: Decreased Breath Sounds (at bases) - Cardiovascular Exam Cardiovascular Exam: REGULAR RHYTHM, Murmur - GI/Abdominal Exam GI & Abdominal Exam: Soft, Normal Bowel Sounds - Extremities Exam Additional comments: R L TMA - Back Exam Back Exam: NORMAL INSPECTION - Neurological Exam Neurological Exam: Alert, Oriented x3 Additional comments: weakness L/E - Psychiatric Exam Psychiatric exam: Anxious - Skin Skin Exam: Warm Assessment and Plan (1) PNA (pneumonia) Status: Acute (2) Chronic cough Status: Acute (3) COPD exacerbation Status: Acute (4) Hypercholesterolemia Status: Chronic (5) HTN (hypertension) Status: Chronic (6) History of transmetatarsal amputation of foot Status: Chronic (7) CAD (coronary artery disease) Status: Chronic (8) Aortic stenosis Status: Acute (9) BPH (benign prostatic hyperplasia) Status: Chronic (10) Generalized pain Status: Chronic (11) PVD (peripheral vascular disease) Status: Chronic - Assessment and Plan (Free Text) Plan: for STT am, BP elevated, add Vasotec BID, COPD exacerbation and PNA improved, continue Rocephin, Zithromax DuoNeb, Prometh with Codeine, taper Steroid continue rest of Tx
[2018-08-02] MEDS: MethylPREDNISolone 40 mg Vial IVP SCH ×3 (00:20→18:40)
[2018-08-02] MEDS: Albuterol-Ipratrop 3 mg / 0.5 (3 ml) UD INH SCH ×4 (00:59→19:05)
[2018-08-02] MEDS: Brimonidine 0.2% 50 DROP/5 ML BOTTLE OD SCH ×3 (11:28→21:50)
[2018-08-02] MEDS: guaiFENesin-DM 600-30 mg ER Tab PO SCH ×2 (11:40→18:38)
[2018-08-02] MEDS: Naproxen 500 MG TAB PO SCH ×2 (11:40→18:38)
[2018-08-02] MEDS: Dorzolamide 2% Ophth Soln OD SCH ×2 (11:43→21:50)
[2018-08-02] MEDS: Azithromycin 500 MG in Sodium Chloride 0.9% 250 ML IVPB SCH (11:59)
--- NOTE | 2018-08-02 12:24 | CP.PCM.PN ---
<Larry Frias - Last Filed: 08/02/18 20:42> Subjective - Date & Time of Evaluation Date of Evaluation: 08/02/18 Time of Evaluation: 12:23 - Subjective Subjective: Larry Frias DO PGY1 - Internal Medicine Scientific Publications Editor - Cardiology Note for Dr. Myles Patient seen and examined at bedside this morning. He is reporting no complaints at this time denies any chest pain palpitations shortness of breath. However, patient has been hypertensive throughout the morning. Objective - Vital Signs/Intake and Output Vital Signs (last 24 hours): Temp Pulse Resp BP Pulse Ox 97.6 F 70 20 203/85 H 98 08/02/18 07:58 08/02/18 11:30 08/02/18 07:58 08/02/18 11:30 08/02/18 10:05 - Medications Medications: Current Medications Albuterol/Ipratropium (Duoneb 3 Mg/0.5 Mg (3 Ml) Ud) 3 ml INH RQ6 [facility] Last Admin: 08/02/18 07:59 Dose: 3 ml Atorvastatin Calcium (Lipitor) 10 mg PO DAILY [facility] Last Admin: 08/02/18 11:38 Dose: 10 mg Brimonidine Tartrate (Alphagan 0.2% Opht) 1 drop OD Q12 [facility] Last Admin: 08/02/18 11:29 Dose: 1 drop Carvedilol (Coreg) 12.5 mg PO Q12 [facility] Last Admin: 08/02/18 11:30 Dose: 12.5 mg Docusate Sodium (Colace) 100 mg PO BID [facility] Last Admin: 08/02/18 11:29 Dose: 100 mg Dorzolamide HCl (Trusopt) 1 drop OD Q12 [facility] Last Admin: 08/02/18 11:43 Dose: 1 drop Doxazosin Mesylate (Cardura) 2 mg PO DAILY [facility] Last Admin: 08/02/18 11:28 Dose: 2 mg Enalapril Maleate (Vasotec) 10 mg PO BID [facility] Last Admin: 08/02/18 11:43 Dose: 10 mg Famotidine (Pepcid) 20 mg PO DAILY [facility] Last Admin: 08/02/18 11:41 Dose: 20 mg Guaifenesin/Dextromethorphan (Mucinex-Dm 600-30 Mg) 1 tab PO BID [facility] Last Admin: 08/02/18 11:40 Dose: 1 tab Home Med (Linaclotide [Linzess]) 290 mcg PO DAILY [facility] Ceftriaxone Sodium 1 gm/ (Sodium Chloride) 100 mls @ 100 mls/hr IVPB DAILY [facility]; Protocol Last Admin: 08/02/18 12:01 Dose: 100 mls/hr Azithromycin 500 mg/ Sodium (Chloride) 250 mls @ 250 mls/hr IVPB DAILY [facility]; Protocol Last Admin: 08/02/18 11:59 Dose: 250 mls/hr Isosorbide Mononitrate (Imdur) 60 mg PO DAILY [facility] Last Admin: 08/02/18 11:38 Dose: 60 mg Lactulose (Enulose) 20 gm PO DAILY PRN PRN Reason: Constipation Last Admin: 07/31/18 14:37 Dose: 20 gm Methylprednisolone (Solu-Medrol) 30 mg IVP Q8 [facility] Last Admin: 08/02/18 11:41 Dose: 30 mg Montelukast Sodium (Singulair) 10 mg PO DAILY [facility] Last Admin: 08/02/18 11:41 Dose: 10 mg Naproxen (Naproxen) 500 mg PO BID [facility] Last Admin: 08/02/18 11:40 Dose: 500 mg Tamsulosin HCl (Flomax) 0.4 mg PO DAILY [facility] Last Admin: 08/02/18 11:38 Dose: 0.4 mg Timolol Maleate (Timoptic 0.5% Ophth Soln) 1 drop OD Q12 [facility] Last Admin: 08/02/18 11:42 Dose: 1 drop - Labs Labs: 07/31/18 04:30 07/31/18 04:30 PT 13.1 Seconds (9.8-13.1) 07/28/18 10:04 INR 1.2 07/28/18 10:04 APTT 31.0 Seconds (25.6-37.1) 07/28/18 10:04 - Constitutional Appears: Well, Non-toxic, No Acute Distress - Head Exam Head Exam: ATRAUMATIC, NORMOCEPHALIC - Eye Exam Eye Exam: EOMI, Left eye absent, PERRL. absent: Scleral icterus - ENT Exam ENT Exam: Mucous Membranes Moist - Respiratory Exam Respiratory Exam: Wheezes - Cardiovascular Exam Cardiovascular Exam: RRR, +S1, +S2, Significant systolic murmur - GI/Abdominal Exam GI & Abdominal Exam: Normal Bowel Sounds, Soft. absent: Tenderness - Extremities Exam Additional comments: Good tibial pulses; BL TMA - Neurological Exam Neurological exam: Alert - Psychiatric Exam Psychiatric exam: Normal Affect, Normal Mood - Skin Skin Exam: Dry, Intact, Normal Color, Warm Assessment and Plan (1) COPD (chronic obstructive pulmonary disease) Status: Acute (2) COPD exacerbation Status: Acute (3) Chronic cough Status: Acute (4) CAD (coronary artery disease) Status: Chronic (5) HTN (hypertension) Status: Chronic - Assessment and Plan (Free Text) Assessment: Will follow up results of NST BP Controlled at time of documentation Continue Medical Management with: Enalapril 10 BID Lipitor 10 QD Imdur 60 QD Coreg 12.5 Q12 <Matheus Myles - Last Filed: 08/03/18 15:47> Objective - Vital Signs/Intake and Output Vital Signs (last 24 hours): Temp Pulse Resp BP Pulse Ox 97.5 F L 80 18 161/82 H 97 08/03/18 11:47 08/03/18 11:47 08/03/18 11:47 08/03/18 11:47 08/03/18 11:47 - Medications Medications: Current Medications Atorvastatin Calcium (Lipitor) 10 mg PO DAILY [facility] Last Admin: 08/03/18 09:44 Dose: 10 mg Brimonidine Tartrate (Alphagan 0.2% Opht) 1 drop OD Q12 [facility] Last Admin: 08/03/18 09:43 Dose: 1 drop Carvedilol (Coreg) 12.5 mg PO Q12 [facility] Last Admin: 08/03/18 09:44 Dose: 12.5 mg Docusate Sodium (Colace) 100 mg PO BID [facility] Last Admin: 08/03/18 09:45 Dose: 100 mg Dorzolamide HCl (Trusopt) 1 drop OD Q12 [facility] Last Admin: 08/03/18 09:43 Dose: 1 drop Doxazosin Mesylate (Cardura) 2 mg PO DAILY [facility] Last Admin: 08/03/18 09:45 Dose: 2 mg Enalapril Maleate (Vasotec) 10 mg PO BID [facility] Last Admin: 08/03/18 09:44 Dose: 10 mg Famotidine (Pepcid) 20 mg PO DAILY [facility] Last Admin: 08/03/18 09:44 Dose: 20 mg Guaifenesin/Dextromethorphan (Mucinex-Dm 600-30 Mg) 1 tab PO BID [facility] Last Admin: 08/03/18 09:45 Dose: 1 tab Ceftriaxone Sodium 1 gm/ (Sodium Chloride) 100 mls @ 100 mls/hr IVPB DAILY [facility]; Protocol Last Admin: 08/03/18 09:37 Dose: 100 mls/hr Azithromycin 500 mg/ Sodium (Chloride) 250 mls @ 250 mls/hr IVPB DAILY [facility]; Protocol Last Admin: 08/03/18 09:38 Dose: 250 mls/hr Isosorbide Mononitrate (Imdur) 60 mg PO DAILY [facility] Last Admin: 08/03/18 09:44 Dose: 60 mg Lactulose (Enulose) 20 gm PO DAILY PRN PRN Reason: Constipation Last Admin: 07/31/18 14:37 Dose: 20 gm Methylprednisolone (Solu-Medrol) 30 mg IVP Q8 [facility] Last Admin: 08/03/18 09:42 Dose: 30 mg Montelukast Sodium (Singulair) 10 mg PO DAILY [facility] Last Admin: 08/03/18 09:45 Dose: 10 mg Naproxen (Naproxen) 500 mg PO BID [facility] Last Admin: 08/03/18 09:45 Dose: 500 mg Promethazine HCl (Phenergan Syrup) 6.25 mg PO Q6 PRN PRN Reason: Cough Last Admin: 08/03/18 13:49 Dose: 6.25 mg Tamsulosin HCl (Flomax) 0.4 mg PO DAILY [facility] Last Admin: 08/03/18 09:45 Dose: 0.4 mg Timolol Maleate (Timoptic 0.5% Ophth Soln) 1 drop OD Q12 [facility] Last Admin: 08/03/18 09:43 Dose: 1 drop - Labs Labs: 07/31/18 04:30 07/31/18 04:30 PT 13.1 Seconds (9.8-13.1) 07/28/18 10:04 INR 1.2 07/28/18 10:04 APTT 31.0 Seconds (25.6-37.1) 07/28/18 10:04 Assessment and Plan (1) Aortic stenosis Assessment & Plan: echo reviewed - moderate cont med rx repeat echo yearly or earlier if patient has clinical symptoms Status: Acute (2) COPD (chronic obstructive pulmonary disease) Assessment & Plan: rx per pulmonary Status: Acute (3) PNA (pneumonia) Status: Acute (4) CAD (coronary artery disease) Assessment & Plan: Stress test reviewed - no evidence of ischemia cont med rx Status: Chronic
--- NOTE | 2018-08-02 13:23 | CP.PCM.PN ---
Subjective - Date & Time of Evaluation Date of Evaluation: 08/02/18 Time of Evaluation: 12:20 - Subjective Subjective: F/U PNA. COPD Exacerbation. cough greatly improved, no chest congestion, no C/P Objective - Vital Signs/Intake and Output Vital Signs (last 24 hours): Temp Pulse Resp BP Pulse Ox 97.5 F L 62 20 195/89 H 93 L 08/02/18 12:39 08/02/18 12:39 08/02/18 12:39 08/02/18 12:39 08/02/18 12:39 - Medications Medications: Current Medications Albuterol/Ipratropium (Duoneb 3 Mg/0.5 Mg (3 Ml) Ud) 3 ml INH RQ6 [facility] Last Admin: 08/02/18 07:59 Dose: 3 ml Atorvastatin Calcium (Lipitor) 10 mg PO DAILY [facility] Last Admin: 08/02/18 11:38 Dose: 10 mg Brimonidine Tartrate (Alphagan 0.2% Opht) 1 drop OD Q12 [facility] Last Admin: 08/02/18 11:29 Dose: 1 drop Carvedilol (Coreg) 12.5 mg PO Q12 [facility] Last Admin: 08/02/18 11:30 Dose: 12.5 mg Docusate Sodium (Colace) 100 mg PO BID [facility] Last Admin: 08/02/18 11:29 Dose: 100 mg Dorzolamide HCl (Trusopt) 1 drop OD Q12 [facility] Last Admin: 08/02/18 11:43 Dose: 1 drop Doxazosin Mesylate (Cardura) 2 mg PO DAILY [facility] Last Admin: 08/02/18 11:28 Dose: 2 mg Enalapril Maleate (Vasotec) 10 mg PO BID [facility] Last Admin: 08/02/18 11:43 Dose: 10 mg Famotidine (Pepcid) 20 mg PO DAILY [facility] Last Admin: 08/02/18 11:41 Dose: 20 mg Guaifenesin/Dextromethorphan (Mucinex-Dm 600-30 Mg) 1 tab PO BID [facility] Last Admin: 08/02/18 11:40 Dose: 1 tab Home Med (Linaclotide [Linzess]) 290 mcg PO DAILY [facility] Ceftriaxone Sodium 1 gm/ (Sodium Chloride) 100 mls @ 100 mls/hr IVPB DAILY [facility]; Protocol Last Admin: 08/02/18 12:01 Dose: 100 mls/hr Azithromycin 500 mg/ Sodium (Chloride) 250 mls @ 250 mls/hr IVPB DAILY [facility]; Protocol Last Admin: 08/02/18 11:59 Dose: 250 mls/hr Isosorbide Mononitrate (Imdur) 60 mg PO DAILY [facility] Last Admin: 08/02/18 11:38 Dose: 60 mg Lactulose (Enulose) 20 gm PO DAILY PRN PRN Reason: Constipation Last Admin: 07/31/18 14:37 Dose: 20 gm Methylprednisolone (Solu-Medrol) 30 mg IVP Q8 [facility] Last Admin: 08/02/18 11:41 Dose: 30 mg Montelukast Sodium (Singulair) 10 mg PO DAILY [facility] Last Admin: 08/02/18 11:41 Dose: 10 mg Naproxen (Naproxen) 500 mg PO BID [facility] Last Admin: 08/02/18 11:40 Dose: 500 mg Tamsulosin HCl (Flomax) 0.4 mg PO DAILY [facility] Last Admin: 08/02/18 11:38 Dose: 0.4 mg Timolol Maleate (Timoptic 0.5% Oph Soln) 1 drop OD Q12 [facility] Last Admin: 08/02/18 11:42 Dose: 1 drop - Labs Labs: 07/31/18 04:30 07/31/18 04:30 PT 13.1 Seconds (9.8-13.1) 07/28/18 10:04 INR 1.2 07/28/18 10:04 APTT 31.0 Seconds (25.6-37.1) 07/28/18 10:04 - Constitutional Appears: No Acute Distress, Chronically Ill - Head Exam Head Exam: NORMAL INSPECTION - Eye Exam Eye Exam: PERRL (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) - ENT Exam ENT Exam: Normal Exam - Neck Exam Neck Exam: Normal Inspection - Respiratory Exam Respiratory Exam: Decreased Breath Sounds (at bases) - Cardiovascular Exam Cardiovascular Exam: REGULAR RHYTHM, Murmur - GI/Abdominal Exam GI & Abdominal Exam: Soft, Normal Bowel Sounds - Extremities Exam Additional comments: R _L TMA - Back Exam Back Exam: NORMAL INSPECTION - Neurological Exam Neurological Exam: Alert, Oriented x3 Additional comments: Weakness L/E - Psychiatric Exam Psychiatric exam: Anxious - Skin Skin Exam: Warm Assessment and Plan (1) PNA (pneumonia) Status: Acute (2) Chronic cough Status: Acute (3) COPD exacerbation Status: Acute (4) Hypercholesterolemia Status: Chronic (5) HTN (hypertension) Status: Chronic (6) History of transmetatarsal amputation of foot Status: Chronic (7) CAD (coronary artery disease) Status: Chronic (8) Aortic stenosis Status: Acute (9) BPH (benign prostatic hyperplasia) Status: Chronic (10) Generalized pain Status: Chronic (11) PVD (peripheral vascular disease) Status: Chronic - Assessment and Plan (Free Text) Plan: continue Zithromax, Rocephin, Duoneb, Imdur, Coreg, Lipitor and rest of Tx, for Myocardial STT today
--- NOTE | 2018-08-02 16:54 | CARD ---
APPROVED REPORT Date of service: 08/02/2018 Protocol: LEXISCAN Test Type: Stress Nuclear Medications: Atorvastatin 10mg, Brimonidine, Carvedilol 12.5mg, Colace 100mg, cardura 2mg, Lactulose 20 gm, Naproxen 500mg, Promethaziine 5ml, Tamsulosin 0.4mg, eye drops. Medical History: Hypertension, COPD, Respirator failure. Intubated, CAD, BPH, O/A, B/L TMA, Blind L eye, Target HR: 136 bpm Resting ECG: abnormal Resting Heart Rate: 74 bpm Resting Blood Pressure: 143/67mmHg submaximum (85%): 116 bpm TEST SUMMARY PREINJECTPRE-[id number]. [id number]. INJECTIONNS FLUSH00:[id number]/67.0. INJECTIONNUC MED00:[id number]/67.0. [id number]/91.0. PROCEDURE Pharmacologic stress testing was performed using 0.4mg per 5ml of regadenoson given intravenously over 7-10 seconds. POST EXERCISE Reason for Termination: Fatigue Target HR: No Max HR: 69 bpm 61% of Maximum Predicted HR: 136 bpm Exercise duration: 01:00 min:sec, 0 Stage Exercise capacity: 1.0METs Max Blood Pressure: 186/81mmHg Blood Pressure response to exercise: normal resting BP - appropriate response Heart Rate response to exercise: appropriate Chest Pain: No, none Angina index: 0 Arrhythmia: Yes, ventricular premature beats-isolated ST Change: Yes, Depression downsloping Deviation: 0 mm Clinical Indications Under Appropriate Use Criteria History of severe Pulmonary disease and COPD. Stress EKG Interpretation Minor non specific st changes were noticed at exercises RESTING ECG Rhythm: Sinus Conduction: Normal Arrhythmias: None Repolarization: Normal STRESS ECG Rhythm: Sinus Conduction: Normal Arrhythmias: None Repolarization: Normal ST-Segment changes: Nondiagnostic resting ST abnormalities. Stress EKG shows no significant changes. EXAM: Myocardial Perfusion REST/STRESS Image QualityGood Imaging Protocol The imaging protocol used to acquire images was Rest Tc-99m/stress Tc-99m 1 day Rest Spect myocardial perfusion imaging was performed in supine position 90 minutes following the injection of 10 mCi of Tc-99 Myoview. Time of rest injection: 7:41 Time of rest imagin:18 At peak stress, the patient was injected intravenously with 30mCi of Tc-99 tetrofosmin after an infusion time of minutes and seconds. Time of stress injection: 10;56 Time of stress imagin:35 Gated Stress Spect was performed 150 minutes after intravenous Tc-99 Myoview injection. The images were gated to evaluate regional wall motion and calculate ventricular ejection fraction. NUCLEAR IMAGE INTERPRETATION Study quality was excellent. Left Ventricular size was Normal at Rest and Stress. Lung uptake was Normal. Left Ventricular ejection fraction is 55%. The rest and stress images show normal perfusion, normal contraction and thickening. LV Perfusion No perfusion defects noticed. LV Perfusion 1 The rest and stress images show normal perfusion. Wall Motion Nomal CONCLUSION 1. Normal nuclear Lexiscan stress test. Recommendation Medcal therapy
[2018-08-03] MEDS: MethylPREDNISolone 40 mg Vial IVP SCH ×3 (00:29→18:51)
[2018-08-03] MEDS: Albuterol-Ipratrop 3 mg / 0.5 (3 ml) UD INH SCH ×2 (00:59→07:31)
[2018-08-03] MEDS: Azithromycin 500 MG in Sodium Chloride 0.9% 250 ML IVPB SCH (09:38)
[2018-08-03] MEDS: Brimonidine 0.2% 50 DROP/5 ML BOTTLE OD SCH (09:43)
[2018-08-03] MEDS: Dorzolamide 2% Ophth Soln OD SCH (09:43)
[2018-08-03] MEDS: guaiFENesin-DM 600-30 mg ER Tab PO SCH ×2 (09:45→18:50)
[2018-08-03] MEDS: Naproxen 500 MG TAB PO SCH ×2 (09:45→18:50)
[2018-08-03] MEDS ORDERED: Promethazine 6.25 MG/5 ML CUP PO PRN (11:18)
--- NOTE | 2018-08-03 14:39 | CP.PCM.PN ---
Subjective - Date & Time of Evaluation Date of Evaluation: 08/03/18 Time of Evaluation: 10:40 - Subjective Subjective: F/U PNA, COPD Exacerbation. Objective - Vital Signs/Intake and Output Vital Signs (last 24 hours): Temp Pulse Resp BP Pulse Ox 97.5 F L 80 18 161/82 H 97 08/03/18 11:47 08/03/18 11:47 08/03/18 11:47 08/03/18 11:47 08/03/18 11:47 - Medications Medications: Current Medications Atorvastatin Calcium (Lipitor) 10 mg PO DAILY [facility] Last Admin: 08/03/18 09:44 Dose: 10 mg Brimonidine Tartrate (Alphagan 0.2% Opht) 1 drop OD Q12 [facility] Last Admin: 08/03/18 09:43 Dose: 1 drop Carvedilol (Coreg) 12.5 mg PO Q12 [facility] Last Admin: 08/03/18 09:44 Dose: 12.5 mg Docusate Sodium (Colace) 100 mg PO BID [facility] Last Admin: 08/03/18 09:45 Dose: 100 mg Dorzolamide HCl (Trusopt) 1 drop OD Q12 [facility] Last Admin: 08/03/18 09:43 Dose: 1 drop Doxazosin Mesylate (Cardura) 2 mg PO DAILY [facility] Last Admin: 08/03/18 09:45 Dose: 2 mg Enalapril Maleate (Vasotec) 10 mg PO BID [facility] Last Admin: 08/03/18 09:44 Dose: 10 mg Famotidine (Pepcid) 20 mg PO DAILY [facility] Last Admin: 08/03/18 09:44 Dose: 20 mg Guaifenesin/Dextromethorphan (Mucinex-Dm 600-30 Mg) 1 tab PO BID [facility] Last Admin: 08/03/18 09:45 Dose: 1 tab Ceftriaxone Sodium 1 gm/ (Sodium Chloride) 100 mls @ 100 mls/hr IVPB DAILY [facility]; Protocol Last Admin: 08/03/18 09:37 Dose: 100 mls/hr Azithromycin 500 mg/ Sodium (Chloride) 250 mls @ 250 mls/hr IVPB DAILY [facility]; Protocol Last Admin: 08/03/18 09:38 Dose: 250 mls/hr Isosorbide Mononitrate (Imdur) 60 mg PO DAILY [facility] Last Admin: 08/03/18 09:44 Dose: 60 mg Lactulose (Enulose) 20 gm PO DAILY PRN PRN Reason: Constipation Last Admin: 07/31/18 14:37 Dose: 20 gm Methylprednisolone (Solu-Medrol) 30 mg IVP Q8 [facility] Last Admin: 08/03/18 09:42 Dose: 30 mg Montelukast Sodium (Singulair) 10 mg PO DAILY [facility] Last Admin: 08/03/18 09:45 Dose: 10 mg Naproxen (Naproxen) 500 mg PO BID [facility] Last Admin: 08/03/18 09:45 Dose: 500 mg Promethazine HCl (Phenergan Syrup) 6.25 mg PO Q6 PRN PRN Reason: Cough Last Admin: 08/03/18 13:49 Dose: 6.25 mg Tamsulosin HCl (Flomax) 0.4 mg PO DAILY [facility] Last Admin: 08/03/18 09:45 Dose: 0.4 mg Timolol Maleate (Timoptic 0.5% Ophth Soln) 1 drop OD Q12 [facility] Last Admin: 08/03/18 09:43 Dose: 1 drop - Labs Labs: 07/31/18 04:30 07/31/18 04:30 PT 13.1 Seconds (9.8-13.1) 07/28/18 10:04 INR 1.2 07/28/18 10:04 APTT 31.0 Seconds (25.6-37.1) 07/28/18 10:04 - Constitutional Appears: No Acute Distress, Chronically Ill - Head Exam Head Exam: NORMAL INSPECTION - Eye Exam Eye Exam: PERRL (R eye. L eye blind.) - ENT Exam ENT Exam: Normal Exam - Neck Exam Neck Exam: Normal Inspection - Respiratory Exam Respiratory Exam: Decreased Breath Sounds (at bases) - Cardiovascular Exam Cardiovascular Exam: REGULAR RHYTHM, Murmur - GI/Abdominal Exam GI & Abdominal Exam: Soft, Normal Bowel Sounds - Extremities Exam Additional comments: R _L TMA - Back Exam Back Exam: NORMAL INSPECTION - Neurological Exam Neurological Exam: Alert, Oriented x3 Additional comments: Weakness L/E - Psychiatric Exam Psychiatric exam: Normal Mood - Skin Skin Exam: Warm Assessment and Plan (1) PNA (pneumonia) Status: Acute (2) Chronic cough Status: Acute (3) COPD exacerbation Status: Acute (4) Hypercholesterolemia Status: Chronic (5) HTN (hypertension) Status: Chronic (6) History of transmetatarsal amputation of foot Status: Chronic (7) CAD (coronary artery disease) Status: Chronic (8) Aortic stenosis Status: Acute (9) BPH (benign prostatic hyperplasia) Status: Chronic (10) Generalized pain Status: Chronic (11) PVD (peripheral vascular disease) Status: Chronic
[2018-08-03 16:29] VITALS: BP 132/63; PULSE 60; RESP 16; TEMP 97.2; O2SAT 95
--- NOTE | 2018-08-03 17:31 | CP.PCM.PN ---
Subjective - Date & Time of Evaluation Date of Evaluation: 08/03/18 Time of Evaluation: 17:30 - Subjective Subjective: sob stable Objective - Vital Signs/Intake and Output Vital Signs (last 24 hours): Temp Pulse Resp BP Pulse Ox 97.2 F L 60 16 132/63 95 08/03/18 16:28 08/03/18 16:28 08/03/18 16:28 08/03/18 16:28 08/03/18 16:28 - Medications Medications: Current Medications Atorvastatin Calcium (Lipitor) 10 mg PO DAILY [facility] Last Admin: 08/03/18 09:44 Dose: 10 mg Brimonidine Tartrate (Alphagan 0.2% Opht) 1 drop OD Q12 [facility] Last Admin: 08/03/18 09:43 Dose: 1 drop Carvedilol (Coreg) 12.5 mg PO Q12 [facility] Last Admin: 08/03/18 09:44 Dose: 12.5 mg Docusate Sodium (Colace) 100 mg PO BID [facility] Last Admin: 08/03/18 09:45 Dose: 100 mg Dorzolamide HCl (Trusopt) 1 drop OD Q12 [facility] Last Admin: 08/03/18 09:43 Dose: 1 drop Doxazosin Mesylate (Cardura) 2 mg PO DAILY [facility] Last Admin: 08/03/18 09:45 Dose: 2 mg Enalapril Maleate (Vasotec) 10 mg PO BID [facility] Last Admin: 08/03/18 09:44 Dose: 10 mg Famotidine (Pepcid) 20 mg PO DAILY [facility] Last Admin: 08/03/18 09:44 Dose: 20 mg Guaifenesin/Dextromethorphan (Mucinex-Dm 600-30 Mg) 1 tab PO BID [facility] Last Admin: 08/03/18 09:45 Dose: 1 tab Ceftriaxone Sodium 1 gm/ (Sodium Chloride) 100 mls @ 100 mls/hr IVPB DAILY [facility]; Protocol Last Admin: 08/03/18 09:37 Dose: 100 mls/hr Azithromycin 500 mg/ Sodium (Chloride) 250 mls @ 250 mls/hr IVPB DAILY [facility]; Protocol Last Admin: 08/03/18 09:38 Dose: 250 mls/hr Isosorbide Mononitrate (Imdur) 60 mg PO DAILY [facility] Last Admin: 08/03/18 09:44 Dose: 60 mg Lactulose (Enulose) 20 gm PO DAILY PRN PRN Reason: Constipation Last Admin: 07/31/18 14:37 Dose: 20 gm Methylprednisolone (Solu-Medrol) 30 mg IVP Q8 [facility] Last Admin: 08/03/18 09:42 Dose: 30 mg Montelukast Sodium (Singulair) 10 mg PO DAILY [facility] Last Admin: 08/03/18 09:45 Dose: 10 mg Naproxen (Naproxen) 500 mg PO BID [facility] Last Admin: 08/03/18 09:45 Dose: 500 mg Promethazine HCl (Phenergan Syrup) 6.25 mg PO Q6 PRN PRN Reason: Cough Last Admin: 08/03/18 13:49 Dose: 6.25 mg Tamsulosin HCl (Flomax) 0.4 mg PO DAILY [facility] Last Admin: 08/03/18 09:45 Dose: 0.4 mg Timolol Maleate (Timoptic 0.5% Ophth Soln) 1 drop OD Q12 [facility] Last Admin: 08/03/18 09:43 Dose: 1 drop - Labs Labs: 07/31/18 04:30 07/31/18 04:30 PT 13.1 Seconds (9.8-13.1) 07/28/18 10:04 INR 1.2 07/28/18 10:04 APTT 31.0 Seconds (25.6-37.1) 07/28/18 10:04 - Constitutional Appears: Well - Head Exam Head Exam: ATRAUMATIC, NORMAL INSPECTION, NORMOCEPHALIC - Eye Exam Eye Exam: EOMI, Normal appearance, PERRL Pupil Exam: NORMAL ACCOMODATION, PERRL - ENT Exam ENT Exam: Mucous Membranes Moist, Normal Exam - Neck Exam Neck Exam: Full ROM, Normal Inspection. absent: Lymphadenopathy - Respiratory Exam Respiratory Exam: Clear to Ausculation Bilateral, NORMAL BREATHING PATTERN - Cardiovascular Exam Cardiovascular Exam: REGULAR RHYTHM, +S1, +S2. absent: Murmur - GI/Abdominal Exam GI & Abdominal Exam: Soft, Normal Bowel Sounds. absent: Tenderness - Extremities Exam Extremities Exam: Full ROM, Normal Capillary Refill, Normal Inspection. absent: Joint Swelling, Pedal Edema - Back Exam Back Exam: NORMAL INSPECTION - Neurological Exam Neurological Exam: Alert, Awake, CN II-XII Intact, Normal Gait, Oriented x3 - Psychiatric Exam Psychiatric exam: Normal Affect, Normal Mood - Skin Skin Exam: Dry, Intact, Normal Color, Warm Assessment and Plan (1) Aortic stenosis Assessment & Plan: moderate f/u echo in 6 months Status: Acute (2) COPD (chronic obstructive pulmonary disease) Status: Acute (3) PNA (pneumonia) Status: Acute (4) CAD (coronary artery disease) Assessment & Plan: cont asa, statins stress test nl cont coreg, enalapril dc imdur Status: Chronic
--- NOTE | 2018-08-03 23:10 | CP.PCM.DIS ---
Provider - Provider Date of Admission: 07/28/18 13:07 Attending physician: Lucian Chen MD Consults: 07/29/18 22:23 Cardiology Consult Routine Comment: Consulting Provider: Matheus Myles Consulting Physician: Matheus Myles Reason for Consult: Per MD Diagnosis - Discharge Diagnosis (1) PNA (pneumonia) Status: Acute (2) Chronic cough Status: Acute Priority: High (3) COPD exacerbation Status: Acute Priority: High (4) Hypercholesterolemia Status: Chronic Priority: High (5) HTN (hypertension) Status: Chronic Priority: Medium (6) History of transmetatarsal amputation of foot Status: Chronic Priority: Medium (7) CAD (coronary artery disease) Status: Chronic Priority: Medium (8) Aortic stenosis Status: Acute (9) BPH (benign prostatic hyperplasia) Status: Chronic Priority: Medium (10) Generalized pain Status: Chronic Priority: Medium (11) PVD (peripheral vascular disease) Status: Chronic Hospital Course - Lab Results Lab Results: Micro Results 07/28/18 10:30 Blood-Venous Blood Culture - Final NO GROWTH AFTER 5 DAYS 07/28/18 10:30 Blood-Venous Gram Stain - Final TEST NOT PERFORMED 07/28/18 10:04 Blood-Venous Blood Culture - Final NO GROWTH AFTER 5 DAYS 07/28/18 10:04 Blood-Venous Gram Stain - Final TEST NOT PERFORMED Most Recent Lab Values WBC 14.4 K/uL (4.8-10.8) H 07/31/18 04:30 RBC 4.22 Mil/uL (4.40-5.90) L 07/31/18 04:30 Hgb 12.4 g/dL (12.0-18.0) 07/31/18 04:30 Hct 37.7 % (35.0-51.0) 07/31/18 04:30 MCV 89.3 fl (80.0-94.0) 07/31/18 04:30 MCH 29.3 pg (27.0-31.0) 07/31/18 04:30 MCHC 32.8 g/dL (33.0-37.0) L 07/31/18 04:30 RDW 14.8 % (11.5-14.5) H 07/31/18 04:30 Plt Count 155 K/uL (130-400) 07/31/18 04:30 MPV 10.8 fl (7.2-11.7) 07/30/18 04:30 Neut % (Auto) 89.5 % (50.0-75.0) H 07/30/18 04:30 Lymph % (Auto) 7.6 % (20.0-40.0) L 07/30/18 04:30 [place] % (Auto) 2.7 % (0.0-10.0) 07/30/18 04:30 Eos % (Auto) 0.0 % (0.0-4.0) 07/30/18 04:30 Baso % (Auto) 0.2 % (0.0-2.0) 07/30/18 04:30 Neut # (Auto) 16.5 K/uL (1.8-7.0) H 07/30/18 04:30 Lymph # (Auto) 1.4 K/uL (1.0-4.3) 07/30/18 04:30 [place] # (Auto) 0.5 K/uL (0.0-0.8) 07/30/18 04:30 Eos # (Auto) 0.0 K/uL (0.0-0.7) 07/30/18 04:30 Baso # (Auto) 0.0 K/uL (0.0-0.2) 07/30/18 04:30 Neutrophils % (Manual) 91 % (42-75) H 07/30/18 04:30 Lymphocytes % (Manual) 7 % (20-50) L 07/30/18 04:30 Monocytes % (Manual) 2 % (0-10) 07/30/18 04:30 Platelet Estimate Normal (NORMAL) 07/30/18 04:30 Large Platelets Present 07/30/18 04:30 Hypochromasia (manual) Slight 07/30/18 04:30 Anisocytosis (manual) Slight 07/30/18 04:30 Microcytosis (manual) Slight 07/30/18 04:30 Tear Drop Cells Slight 07/30/18 04:30 Ovalocytes Slight 07/30/18 04:30 PT 13.1 Seconds (9.8-13.1) 07/28/18 10:04 INR 1.2 07/28/18 10:04 APTT 31.0 Seconds (25.6-37.1) 07/28/18 10:04 pCO2 35 mm/Hg (35-45) 07/28/18 17:48 pO2 84 mm/Hg (80-100) 07/28/18 17:48 HCO3 26.5 mmol/L (21-28) 07/28/18 17:48 ABG pH 7.47 (7.35-7.45) H 07/28/18 17:48 ABG Total CO2 26.6 mmol/L (22-28) 07/28/18 17:48 ABG O2 Saturation 98.8 % (95-98) H 07/28/18 17:48 ABG O2 Content 19.3 ML/dL (15-23) 07/28/18 17:48 ABG Base Excess 2.1 mmol/L (-2.0-3.0) 07/28/18 17:48 ABG Hemoglobin 14.3 g/dL (11.7-17.4) 07/28/18 17:48 ABG Carboxyhemoglobin 1.8 % (0.5-1.5) H 07/28/18 17:48 POC ABG HHb (Measured) 1.2 % (0.0-5.0) 07/28/18 17:48 ABG Methemoglobin 1.2 % (0.0-3.0) 07/28/18 17:48 ABG O2 Capacity 19.5 mL/dL (16-24) 07/28/18 17:48 Yuri Test Yes 07/28/18 17:48 A-a O2 Difference 22.0 mm/Hg 07/28/18 17:48 Hgb O2 Saturation 95.7 % (95.0-98.0) 07/28/18 17:48 FiO2 21.0 % 07/28/18 17:48 Sodium 137 mmol/l (132-148) 07/31/18 04:30 Potassium 4.6 MMOL/L (3.6-5.0) 07/31/18 04:30 Chloride 105 mmol/L (98-107) 07/31/18 04:30 Carbon Dioxide 24 mmol/L (22-30) 07/31/18 04:30 Anion Gap 13 (10-20) 07/31/18 04:30 BUN 33 mg/dl (9-20) H 07/31/18 04:30 Creatinine 1.1 mg/dl (0.8-1.5) 07/31/18 04:30 Est GFR ( Amer) > 60 07/31/18 04:30 Est GFR (Non-Af Amer) > 60 07/31/18 04:30 POC Glucose (mg/dL) 187 mg/dL (65-110) H 07/29/18 11:49 Random Glucose 159 mg/dL (75-110) H 07/31/18 04:30 Hemoglobin A1c 6.2 % (4.2-6.5) 07/30/18 04:30 Calcium 8.8 mg/dL (8.4-10.2) 07/31/18 04:30 Phosphorus 4.6 mg/dl (2.5-4.5) H 07/30/18 04:30 Magnesium 2.2 MG/DL (1.6-2.3) 07/30/18 04:30 Total Bilirubin 0.4 mg/dl (0.2-1.3) 07/30/18 04:30 AST 27 U/L (17-59) 07/30/18 04:30 ALT 19 U/L (21-72) L 07/30/18 04:30 Alkaline Phosphatase 92 U/L (38-126) 07/30/18 04:30 Total Protein 8.3 G/DL (6.3-8.2) H 07/30/18 04:30 Albumin 4.1 g/dL (3.5-5.0) 07/30/18 04:30 Globulin 4.3 gm/dL (2.2-3.9) H 07/30/18 04:30 Albumin/Globulin Ratio 1.0 (1.0-2.1) 07/30/18 04:30 Triglycerides 81 mg/DL (0-149) 07/29/18 04:35 Cholesterol 225 mg/dL (0-199) H 07/29/18 04:35 LDL Cholesterol Direct 157 mg/dL (0-129) H 07/29/18 04:35 HDL Cholesterol 50 MG/DL (30-70) 07/29/18 04:35 TSH 3rd Generation 0.69 mIU/ML (0.46-4.68) 07/29/18 04:35 Influenza Typ A,B (EIA) Negative for flu a/b (NEGATIVE) 07/28/18 10:04 Ur L.pneumophila Ag Negative (NEGATIVE) 07/31/18 05:00 Mycoplasma pneumon IgM Negative (NEGATIVE) 07/30/18 09:29 Discharge Exam - Head Exam Head Exam: ATRAUMATIC, NORMAL INSPECTION, NORMOCEPHALIC Discharge Plan - Discharge Medications Prescriptions: Fluticasone/Salmeterol 250/50 [Advair Diskus] 1 dsk IH Q12 #30 puff Atorvastatin [Lipitor] 10 mg PO DAILY #30 tab Methylprednisolone [Medrol Dose Pack (21 tabs)] 4 mg PO DAILY #21 mg guaiFENesin/Dextromethorphan [Mucinex-DM 600-30 mg] 1 tab PO BID #10 tab Promethazine [Phenergan Syrup] 6.25 mg PO Q6 PRN #20 cup PRN Reason: Cough Pantoprazole Sodium [Protonix] 40 mg PO DAILY #14 ect Enalapril Maleate [Vasotec] 10 mg PO BID #60 tab Azithromycin [Zithromax] 500 mg PO DAILY #3 tab - Follow Up Plan Condition: STABLE Disposition: HOME/ ROUTINE Instructions: Pneumonia, Adult (DC), Exacerbation of COPD (DC) Additional Instructions: frida con el Doctor Dona fowler 08/09/18 1:30pm Referrals: Brock Haq MD [Family Provider] - Lucian Chen MD [Staff Provider] -
== END 2018-08-03 21:57 | disposition home health service (06) | DRG 190 ==
LOC: H.ER 09:19 → H.ERHOLD 13:07 → H.TEL 16:40
PROVIDERS: ADMIT Internal Medicine Pulmonary Disease; ATTEND Internal Medicine Pulmonary Disease
PROC: 3E0F73Z Introduction of Anti-inflammatory into Respiratory Tract, Via Natural or Artificial Opening (ICD-10-PCS; principal; 2018-07-28)
PROC: 3E02340 Introduction of Influenza Vaccine into Muscle, Percutaneous Approach (ICD-10-PCS; 2018-07-30)
DX: J44.1 Chronic obstructive pulmonary disease with (acute) exacerbation (principal); J18.9 Pneumonia, unspecified organism; J44.0 Chronic obstructive pulmonary disease with (acute) lower respiratory infection; I35.0 Nonrheumatic aortic (valve) stenosis; I25.10 Atherosclerotic heart disease of native coronary artery without angina pectoris; G89.29 Other chronic pain; I10 Essential (primary) hypertension; E78.00 Pure hypercholesterolemia, unspecified; I73.9 Peripheral vascular disease, unspecified; H54.62 Unqualified visual loss, left eye, normal vision right eye; M19.90 Unspecified osteoarthritis, unspecified site; N40.0 Benign prostatic hyperplasia without lower urinary tract symptoms; Z99.81 Dependence on supplemental oxygen; Z23 Encounter for immunization; Z99.3 Dependence on wheelchair; Z89.432 Acquired absence of left foot; Z89.431 Acquired absence of right foot; Z87.891 Personal history of nicotine dependence; Z79.1 Long term (current) use of non-steroidal anti-inflammatories (NSAID)